=== PATIENT | male | born 1970 | race Caucasian/White ===

== ENCOUNTER 2020-04-29 09:49 | Inpatient (IN) | payer MEDICAID ==
[~2020-04-29] VITALS: Ht 185.4 cm; Wt 108.1 kg
--- NOTE | 2020-04-29 10:35 | NUR ---
PT BROUGHT FROM RAP TO BED 5
[2020-04-29 11:14] LABS: BASOPHILS % (AUTO) 0.3 % (0-1); EOSINOPHILS # (AUTO) 0.1 X10'3 (0-0.9); EOSINOPHILS % (AUTO) 1.3 % (0-6); HEMATOCRIT 41.2 % (42.0-52.0); HEMOGLOBIN 13.4 g/dl (14.0-17.9); LYMPHOCYTES # (AUTO) 1.6 X10'3 (1.1-4.8); LYMPHOCYTES % (AUTO) 13.8 % (21-51); MEAN CORPUSCULAR HEMOGLOBIN 24.5 PG (27.0-31.0); MEAN CORPUSCULAR HGB CONC 32.6 g/dL (33.0-36.5); MEAN CORPUSCULAR VOLUME 75.3 FL (78-98); MEAN PLATELET VOLUME 7.3 FL (7.4-10.4); MONOCYTES # (AUTO) 1.3 X10'3 (0-0.9); MONOCYTES % (AUTO) 11.1 % (2-12); NEUTROPHILS # (AUTO) 8.3 X10'3 (1.8-7.7); NEUTROPHILS % (AUTO) 73.5 % (42-75); PLATELET COUNT 178 X10'3 (140-440); RED BLOOD COUNT 5.47 X10'6 (4.70-6.10); RED CELL DISTRIBUTION WIDTH 20.1 % (11.5-14.5); WHITE BLOOD COUNT 11.3 X10'3 (4.5-11.0)
[2020-04-29 11:29] LABS: ALANINE AMINOTRANSFERASE 31 U/L (12-78); ALBUMIN 2.4 G/DL (3.4-5.0); ALBUMIN/GLOBULIN RATIO 0.5 (1.1-1.5); ALKALINE PHOSPHATASE 120 IU/L (46-116); ANION GAP 14 (8-16); ASPARTATE AMINO TRANSFERASE 41 U/L (10-37); BLOOD UREA NITROGEN 13 MG/DL (7-18); BUN/CREATININE RATIO 12.1 (5.4-32.0); CALCIUM 8.8 MG/DL (8.5-10.1); CHLORIDE 99 MMOL/L (99-107); CREATININE 1.07 MG/DL (0.60-1.10); GLUCOSE 127 MG/DL (70-104); POTASSIUM 4.5 MMOL/L (3.5-5.1); SODIUM 137 MMOL/L (135-145); TOTAL CARBON DIOXIDE 24.4 MMOL/L (24-32); TOTAL PROTEIN 7.5 G/DL (6.4-8.2); eGFR 73 ML/MIN
[2020-04-29] MEDS ORDERED: normal saline 1000ML IV soln IVB ONE (11:30)
[2020-04-29] MEDS ORDERED: LORazepam 2 mg/ml vial IV ONE (12:00)
[2020-04-29 12:25] LABS: ABG BASE EXCESS -0.1 mmol/L (-2.0-2.0); ABG OXYGEN SATURATION 95.9 % (94-97); ABG PCO2 (T) 25.7 mmHg (35.0-48.0); ABG PO2 (T) 77.6 mmHg (75.0-100.0); ALLEN'S TEST POSITIVE; FCOHb 0.6 % (0.0-3.9); FMetHb 0.2 % (0.0-1.5); FO2Hb 95.1 % (94-97); TOTAL HEMOGLOBIN 13.8 G/dl (14.0-18.0)
[2020-04-29 12:37] LABS: D-DIMER 5.19 MG/L FEU (0-0.50)
[2020-04-29 12:44] LABS: ANISOCYTOSIS 3+; MICROCYTOSIS 1+; PLATELET ESTIMATE NORMAL
[2020-04-29 12:45] LABS: ELLIPTOCYTES FEW
[2020-04-29] MEDS ORDERED: iohexol 350MG/ML 100ml bottle IV ONE (13:14)
--- NOTE | 2020-04-29 13:22 | NUR ---
20G IV TO RIGHT WRIST WINSOME WELL, ATIVAN GIVEN, PT TO CT
--- NOTE | 2020-04-29 13:29 | NUR ---
BACK FROM CT
[2020-04-29] MEDS ORDERED: enoxaparin 100mg/ml syringe SUBCUT ONE (14:25)
[2020-04-29] MEDS ORDERED: enoxaparin 80mg/0.8ml syringe SUBCUT ONE (14:30)
[2020-04-29] MEDS ORDERED: enoxaparin 40mg/0.4ml syringe SUBCUT ONE (14:35)
[2020-04-29] MEDS ORDERED: NO HOME MEDS (14:47)
--- NOTE | 2020-04-29 15:00 | NUR ---
Noticed BP trending downward, MAP still above 65, at 74. AZUL York made aware.
[2020-04-29] MEDS ORDERED: alteplase 100MG inj. 100 ML IV ONE (16:15)
[2020-04-29] MEDS ORDERED: thiamine 100mg/ml 2ml inj. IV ONE ×4 (16:35)
[2020-04-29] MEDS ORDERED: potassium Cl 20 mEq SR tablet PO PRN ×8 (16:35)
[2020-04-29] MEDS ORDERED: dextrose 50%-water 50ml dispensing syringe IV PRN ×4 (16:35)
[2020-04-29] MEDS ORDERED: magnesium 2GM in 50ml NS 50 ML IV PRN ×4 (16:35)
[2020-04-29] MEDS ORDERED: Neutra Phos packet PO PRN ×4 (16:35)
[2020-04-29] MEDS ORDERED: pantoprazole 40mg Tablet.DR PO SCH ×3 (16:35)
[2020-04-29] MEDS ORDERED: magnesium hydroxide 30ml (MOM) UD suspension PO PRN ×4 (16:35)
[2020-04-29] MEDS ORDERED: K, MAG and/or Phos replacement - Verify level? MC SCH ×3 (16:35)
[2020-04-29] MEDS ORDERED: haloperidol 5mg tablet PO PRN ×4 (16:35)
[2020-04-29] MEDS ORDERED: LORazepam 2 mg/ml vial IV PRN ×3 (16:35)
[2020-04-29] MEDS ORDERED: magnesium 4gm in 100ml NS 100 ML IV PRN ×4 (16:35)
[2020-04-29] MEDS ORDERED: magnesium Cl slow-release 64mg tablet PO PRN ×4 (16:35)
[2020-04-29] MEDS: K, MAG and/or Phos replacement - Verify level? MC SCH (16:35)
[2020-04-29] MEDS ORDERED: haloperidol lactate 5mg/ml inj IM PRN ×4 (16:35)
[2020-04-29] MEDS ORDERED: sodium phosphate inj. 15 MMOL in dextrose 5%-water 250 ML IV PRN ×8 (16:35)
[2020-04-29] MEDS ORDERED: sodium phosphate inj. 30 MMOL in dextrose 5%-water 250 ML IV PRN ×8 (16:35)
[2020-04-29 17:20] LABS: AMYLASE 16 U/L (25-115); LIPASE < 50 U/L (73-393); MAGNESIUM 1.7 MG/DL (1.5-2.4); PHOSPHORUS 3.8 MG/DL (2.3-4.5)
[2020-04-29] MEDS ORDERED: thiamine inj. 100 MG in normal saline 100ml IV soln 99 ML IV ONE (17:20)
[2020-04-29] MEDS ORDERED: octreotide inj. 1,250 MCG in normal saline 250ml IV soln 243.75 ML IV SCH (17:45)
[2020-04-29] MEDS: pantoprazole 40mg Tablet.DR PO SCH ×2 (17:47→19:23)
--- NOTE | 2020-04-29 19:15 | NUR ---
Patient in room ICU 2037. I have received report from Sarah BLAKELY (ER) and had the opportunity to ask questions and assume patient care. Patient is Alert and oriented. He is tachycardic and tachypneic. He is feeling SOB and has a cough. BP is good and he is not in any pain. Will start TPA at 0230 (12 hrs after lovenox inj.) and continue to monitor closely.
[2020-04-29] MEDS: LORazepam 2 mg/ml vial IV PRN (19:23)
[2020-04-29 19:30] VITALS: BP 113/71
[2020-04-29 20:00] VITALS: BP 94/62
[2020-04-29 21:00] VITALS: BP 104/69
[2020-04-29 22:00] VITALS: BP 104/71
[2020-04-29 23:00] VITALS: BP 91/64
[2020-04-30] VITALS (37 sets, daily range): BP systolic 88–125; BP diastolic 54–82
[2020-04-30] MEDS ORDERED: alteplase 100MG inj. 100 ML IV ONE (02:30)
[2020-04-30] MEDS ORDERED: heparin 25,000 UNIT/250ml bag 250 ML IV ONE (04:00)
[2020-04-30] MEDS ORDERED: heparin 10,000 units/1 ML INJ IV PRN (04:30)
[2020-04-30] MEDS ORDERED: heparin 10,000 units/1 ML INJ IV ONE (04:30)
--- NOTE | 2020-04-30 04:30 | NUR ---
Did not give heparin bolus before starting heparin infusion due to patient bleeding out of his nose for 1/2 hour. He just received TPA infusion and I did not have current coags or hemogram.
[2020-04-30] MEDS: heparin 25,000 UNIT/250ml bag 250 ML IV SCH ×2 (05:00→16:31)
[2020-04-30 06:30] LABS: HEMATOCRIT 34.7 % (42.0-52.0); HEMOGLOBIN 11.3 g/dl (14.0-17.9); MEAN CORPUSCULAR HEMOGLOBIN 24.8 PG (27.0-31.0); MEAN CORPUSCULAR HGB CONC 32.5 g/dL (33.0-36.5); MEAN CORPUSCULAR VOLUME 76.2 FL (78-98); MEAN PLATELET VOLUME 7.7 FL (7.4-10.4); PLATELET COUNT 150 X10'3 (140-440); RED BLOOD COUNT 4.55 X10'6 (4.70-6.10); RED CELL DISTRIBUTION WIDTH 19.6 % (11.5-14.5); WHITE BLOOD COUNT 7.9 X10'3 (4.5-11.0)
--- NOTE | 2020-04-30 06:30 | NUR ---
Patient in room ICU 2037. I have received report from kalyan and had the opportunity to ask questions and assume patient care.
[2020-04-30 06:34] LABS: PARTIAL THROMBOPLASTIN TIME 35 SECONDS (22-32)
[2020-04-30 06:40] LABS: ALANINE AMINOTRANSFERASE 24 U/L (12-78); ALBUMIN 2.1 G/DL (3.4-5.0); ALBUMIN/GLOBULIN RATIO 0.5 (1.1-1.5); ALKALINE PHOSPHATASE 93 IU/L (46-116); ANION GAP 9 (8-16); ASPARTATE AMINO TRANSFERASE 29 U/L (10-37); BLOOD UREA NITROGEN 13 MG/DL (7-18); BUN/CREATININE RATIO 13.7 (5.4-32.0); CALCIUM 8.1 MG/DL (8.5-10.1); CHLORIDE 102 MMOL/L (99-107); CREATININE 0.95 MG/DL (0.60-1.10); GLUCOSE 96 MG/DL (70-104); POTASSIUM 3.7 MMOL/L (3.5-5.1); SODIUM 136 MMOL/L (135-145); TOTAL CARBON DIOXIDE 25.4 MMOL/L (24-32); TOTAL PROTEIN 6.2 G/DL (6.4-8.2); eGFR 84 ML/MIN
[2020-04-30 06:43] LABS: MAGNESIUM 1.7 MG/DL (1.5-2.4); PHOSPHORUS 3.8 MG/DL (2.3-4.5)
[2020-04-30] MEDS: K, MAG and/or Phos replacement - Verify level? MC SCH (08:00)
[2020-04-30] MEDS: pantoprazole 40mg Tablet.DR PO SCH ×2 (08:28→19:34)
--- NOTE | 2020-04-30 10:30 | NUR ---
update to dr reyna. labs ordered for send out, hgb down- aware, ptt wnl. pt awake alert, cooperative. taking diet well
[2020-04-30 11:27] LABS: HEMATOCRIT 31.4 % (42.0-52.0); HEMOGLOBIN 10.4 g/dl (14.0-17.9); MEAN CORPUSCULAR HEMOGLOBIN 24.8 PG (27.0-31.0); MEAN CORPUSCULAR HGB CONC 33.1 g/dL (33.0-36.5); MEAN CORPUSCULAR VOLUME 74.8 FL (78-98); MEAN PLATELET VOLUME 7.6 FL (7.4-10.4); PLATELET COUNT 155 X10'3 (140-440); RED BLOOD COUNT 4.19 X10'6 (4.70-6.10); RED CELL DISTRIBUTION WIDTH 19.8 % (11.5-14.5); WHITE BLOOD COUNT 6.6 X10'3 (4.5-11.0)
[2020-04-30] MEDS: thiamine 100mg tablet PO SCH (13:02)
[2020-04-30] MEDS: multivitamins, therapeutics tablet PO SCH (13:02)
[2020-04-30] MEDS: folic acid 1mg tablet PO SCH (13:03)
--- NOTE | 2020-04-30 14:26 | NUR ---
Malnutrition consult. Pt appears well nourished with no visible fat or muscle wasting. No edema. Normal muscle strength. Eating well, 75-100% PO intake. Does not meet criteria for malnutrition. Addendum: 04/30/20 at [address] Amended: Links added.
--- NOTE | 2020-04-30 14:43 | NUR ---
pt states his breathing is the same with difficulty taking deep breathes. encouraged liquids- voided x 1 dark roger. sats down at times when sleeping, otherwise wnl vss
[2020-04-30 15:26] LABS: HEMATOCRIT 31.7 % (42.0-52.0); HEMOGLOBIN 10.4 g/dl (14.0-17.9); MEAN CORPUSCULAR HEMOGLOBIN 24.4 PG (27.0-31.0); MEAN CORPUSCULAR HGB CONC 32.7 g/dL (33.0-36.5); MEAN CORPUSCULAR VOLUME 74.5 FL (78-98); MEAN PLATELET VOLUME 7.6 FL (7.4-10.4); PLATELET COUNT 158 X10'3 (140-440); RED BLOOD COUNT 4.26 X10'6 (4.70-6.10); RED CELL DISTRIBUTION WIDTH 19.8 % (11.5-14.5); WHITE BLOOD COUNT 6.6 X10'3 (4.5-11.0)
[2020-04-30 15:42] LABS: PARTIAL THROMBOPLASTIN TIME 71 SECONDS (22-32)
[2020-04-30] MEDS: LORazepam 2 mg/ml vial IV PRN (17:34)
--- NOTE | 2020-04-30 17:38 | NUR ---
BREATHING IMPROVED PER PT. SLIGHT SHAKING NOTED- ONLY WHEN ASKED- STATES HE IS ANXIOUS. ATIVAN 2MG IV GIVEN. ENCOURAGED TO ASK WHEN HE NEEDS MEDICATION.
[2020-04-30 20:26] LABS: HEMATOCRIT 29.7 % (42.0-52.0); HEMOGLOBIN 9.7 g/dl (14.0-17.9); MEAN CORPUSCULAR HEMOGLOBIN 24.4 PG (27.0-31.0); MEAN CORPUSCULAR HGB CONC 32.8 g/dL (33.0-36.5); MEAN CORPUSCULAR VOLUME 74.4 FL (78-98); MEAN PLATELET VOLUME 7.5 FL (7.4-10.4); PLATELET COUNT 154 X10'3 (140-440); RED BLOOD COUNT 3.99 X10'6 (4.70-6.10); RED CELL DISTRIBUTION WIDTH 19.7 % (11.5-14.5)
[2020-05-01] VITALS (23 sets, daily range): BP systolic 99–149; BP diastolic 56–93
[2020-05-01] MEDS: heparin 25,000 UNIT/250ml bag 250 ML IV SCH (05:30)
--- NOTE | 2020-05-01 06:30 | NUR ---
Patient in room ICU 2037. I have received report from kalyan and had the opportunity to ask questions and assume patient care.
[2020-05-01 06:40] LABS: BASOPHILS % (AUTO) 0.6 % (0-1); EOSINOPHILS # (AUTO) 0.2 X10'3 (0-0.9); EOSINOPHILS % (AUTO) 3.8 % (0-6); HEMOGLOBIN 10.3 g/dl (14.0-17.9); LYMPHOCYTES # (AUTO) 1.1 X10'3 (1.1-4.8); MEAN CORPUSCULAR HEMOGLOBIN 24.8 PG (27.0-31.0); MEAN CORPUSCULAR HGB CONC 33.2 g/dL (33.0-36.5); MEAN CORPUSCULAR VOLUME 74.7 FL (78-98); MEAN PLATELET VOLUME 7.6 FL (7.4-10.4); MONOCYTES # (AUTO) 0.7 X10'3 (0-0.9); MONOCYTES % (AUTO) 13.3 % (2-12); NEUTROPHILS # (AUTO) 3.1 X10'3 (1.8-7.7); NEUTROPHILS % (AUTO) 60.3 % (42-75); PLATELET COUNT 157 X10'3 (140-440); RED BLOOD COUNT 4.15 X10'6 (4.70-6.10); RED CELL DISTRIBUTION WIDTH 20.5 % (11.5-14.5); WHITE BLOOD COUNT 5.2 X10'3 (4.5-11.0)
[2020-05-01 06:55] LABS: PARTIAL THROMBOPLASTIN TIME 50 SECONDS (22-32)
[2020-05-01 07:00] LABS: ALANINE AMINOTRANSFERASE 26 U/L (12-78); ALBUMIN 1.9 G/DL (3.4-5.0); ALBUMIN/GLOBULIN RATIO 0.5 (1.1-1.5); ALKALINE PHOSPHATASE 78 IU/L (46-116); ANION GAP 6 (8-16); ASPARTATE AMINO TRANSFERASE 37 U/L (10-37); BILIRUBIN,TOTAL 0.5 MG/DL (0.1-1.0); BLOOD UREA NITROGEN 9 MG/DL (7-18); BUN/CREATININE RATIO 11.5 (5.4-32.0); CHLORIDE 102 MMOL/L (99-107); CREATININE 0.78 MG/DL (0.60-1.10); GLUCOSE 104 MG/DL (70-104); MAGNESIUM 1.7 MG/DL (1.5-2.4); PHOSPHORUS 3.3 MG/DL (2.3-4.5); POTASSIUM 3.6 MMOL/L (3.5-5.1); SODIUM 134 MMOL/L (135-145); TOTAL CARBON DIOXIDE 25.9 MMOL/L (24-32); TOTAL PROTEIN 5.9 G/DL (6.4-8.2); eGFR > 90 ML/MIN
[2020-05-01 07:53] LABS: ANISOCYTOSIS 3+; ELLIPTOCYTES 1+; MICROCYTOSIS 1+; PLATELET ESTIMATE NORMAL; POLYCHROMASIA FEW; SCHISTOCYTES FEW
[2020-05-01] MEDS: thiamine 100mg tablet PO SCH (07:54)
[2020-05-01] MEDS: pantoprazole 40mg Tablet.DR PO SCH ×2 (07:54→20:37)
[2020-05-01] MEDS: multivitamins, therapeutics tablet PO SCH (07:54)
[2020-05-01] MEDS: folic acid 1mg tablet PO SCH (07:54)
[2020-05-01] MEDS: K, MAG and/or Phos replacement - Verify level? MC SCH (08:00)
[2020-05-01] MEDS ORDERED: apixaban 2.5mg tablet PO SCH ×2 (08:00)
[2020-05-01] MEDS ORDERED: apixaban 2.5mg tablet PO ONE (09:37)
--- NOTE | 2020-05-01 10:00 | NUR ---
update to dr reyna, orders received. Sandostatin dcd,extra xyiliquis given after change in order. pt uo to bsc for first time- no dizziness noted- tolerated well
[2020-05-01] MEDS ORDERED: LORazepam 2 mg/ml vial IV PRN ×4 (16:35)
[2020-05-01] MEDS ORDERED: LORazepam 1 MG tablet PO PRN ×4 (16:35)
--- NOTE | 2020-05-01 18:38 | NUR ---
pt ambulated around unit and to chair x 1 hour- back to bed on own- "im not feeling good" c/o shaking- ativan 1mg ivp given. reminded of use of call figueroa, pt alert, cooperative all day
[2020-05-01] MEDS: apixaban 5mg tablet PO SCH (20:37)
[2020-05-02] VITALS (19 sets, daily range): BP systolic 93–140; BP diastolic 45–91
[2020-05-02 06:05] LABS: BASOPHILS % (AUTO) 0.4 % (0-1); EOSINOPHILS # (AUTO) 0.2 X10'3 (0-0.9); HEMATOCRIT 30.6 % (42.0-52.0); HEMOGLOBIN 10.2 g/dl (14.0-17.9); LYMPHOCYTES # (AUTO) 1.3 X10'3 (1.1-4.8); LYMPHOCYTES % (AUTO) 24.3 % (21-51); MEAN CORPUSCULAR HEMOGLOBIN 24.9 PG (27.0-31.0); MEAN CORPUSCULAR HGB CONC 33.5 g/dL (33.0-36.5); MEAN CORPUSCULAR VOLUME 74.5 FL (78-98); MEAN PLATELET VOLUME 7.9 FL (7.4-10.4); MONOCYTES # (AUTO) 0.7 X10'3 (0-0.9); MONOCYTES % (AUTO) 14.5 % (2-12); NEUTROPHILS # (AUTO) 2.9 X10'3 (1.8-7.7); NEUTROPHILS % (AUTO) 56.8 % (42-75); PLATELET COUNT 199 X10'3 (140-440); RED BLOOD COUNT 4.11 X10'6 (4.70-6.10); RED CELL DISTRIBUTION WIDTH 21.5 % (11.5-14.5); WHITE BLOOD COUNT 5.2 X10'3 (4.5-11.0)
[2020-05-02 06:11] LABS: PARTIAL THROMBOPLASTIN TIME 31 SECONDS (22-32)
[2020-05-02 06:24] LABS: ALANINE AMINOTRANSFERASE 35 U/L (12-78); ALBUMIN 1.9 G/DL (3.4-5.0); ALBUMIN/GLOBULIN RATIO 0.5 (1.1-1.5); ALKALINE PHOSPHATASE 81 IU/L (46-116); ANION GAP 8 (8-16); ASPARTATE AMINO TRANSFERASE 45 U/L (10-37); BILIRUBIN,TOTAL 0.5 MG/DL (0.1-1.0); BLOOD UREA NITROGEN 9 MG/DL (7-18); BUN/CREATININE RATIO 11.4 (5.4-32.0); CALCIUM 8.1 MG/DL (8.5-10.1); CHLORIDE 104 MMOL/L (99-107); CREATININE 0.79 MG/DL (0.60-1.10); GLUCOSE 91 MG/DL (70-104); MAGNESIUM 1.8 MG/DL (1.5-2.4); PHOSPHORUS 2.9 MG/DL (2.3-4.5); POTASSIUM 3.7 MMOL/L (3.5-5.1); SODIUM 137 MMOL/L (135-145); TOTAL CARBON DIOXIDE 25.5 MMOL/L (24-32); TOTAL PROTEIN 5.9 G/DL (6.4-8.2); eGFR > 90 ML/MIN
--- NOTE | 2020-05-02 06:25 | NUR ---
Problems reprioritized. Patient report given, questions answered & plan of care reviewed with Vishal BLAKELY.
[2020-05-02] MEDS: thiamine 100mg tablet PO SCH (08:33)
[2020-05-02] MEDS: folic acid 1mg tablet PO SCH (08:33)
[2020-05-02] MEDS: apixaban 5mg tablet PO SCH ×2 (08:33→20:27)
[2020-05-02] MEDS: pantoprazole 40mg Tablet.DR PO SCH ×2 (08:33→20:26)
[2020-05-02] MEDS: multivitamins, therapeutics tablet PO SCH (08:33)
[2020-05-02] MEDS: K, MAG and/or Phos replacement - Verify level? MC SCH (08:56)
[2020-05-02] MEDS: guaiFENesin/DM 10ml UD oral syrup PO PRN ×2 (11:50→20:27)
[2020-05-02] MEDS ORDERED: benzonatate 100mg capsule PO PRN (14:30)
[2020-05-02] MEDS: benzonatate 100mg capsule PO SCH ×2 (15:39→23:37)
--- NOTE | 2020-05-02 17:19 | NUR ---
Report given to REDDY Lawrence on tele floor.
--- NOTE | 2020-05-02 17:47 | NUR ---
Patient oriented to room. Vitals signs temp 98.1, BP 106/76, HR 98, Spo2 95%
--- NOTE | 2020-05-02 18:16 | NUR ---
Problems reprioritized. Patient report given, questions answered & plan of care reviewed with Umberto RN.
--- NOTE | 2020-05-02 19:03 | NUR ---
Patient in room PCU 3016. I have received report from Duel and had the opportunity to ask questions and assume patient care.
--- NOTE | 2020-05-02 22:59 | NUR ---
Assessment done at 1900. Documented at 2252. Addendum: 05/02/20 at 2259 by Umberto Whalen RN Amended: Links added.
--- NOTE | 2020-05-02 23:48 | NUR ---
Patient's IV was leaking and not flushing. Removed IV and patient stated he did not want an IV placed tonight. He stated he was going to be discharged tomorrow.
[2020-05-03 02:00] VITALS: BP 113/65
--- NOTE | 2020-05-03 06:28 | NUR ---
Problems reprioritized. Patient report given, questions answered & plan of care reviewed with
[2020-05-03 06:55] LABS: BASOPHILS % (AUTO) 0.7 % (0-1); EOSINOPHILS # (AUTO) 0.3 X10'3 (0-0.9); EOSINOPHILS % (AUTO) 5.5 % (0-6); HEMATOCRIT 31.2 % (42.0-52.0); HEMOGLOBIN 10.5 g/dl (14.0-17.9); LYMPHOCYTES # (AUTO) 1.4 X10'3 (1.1-4.8); LYMPHOCYTES % (AUTO) 23.8 % (21-51); MEAN CORPUSCULAR HEMOGLOBIN 24.8 PG (27.0-31.0); MEAN CORPUSCULAR HGB CONC 33.6 g/dL (33.0-36.5); MEAN CORPUSCULAR VOLUME 73.8 FL (78-98); MEAN PLATELET VOLUME 7.9 FL (7.4-10.4); MONOCYTES # (AUTO) 0.8 X10'3 (0-0.9); MONOCYTES % (AUTO) 14.9 % (2-12); NEUTROPHILS # (AUTO) 3.1 X10'3 (1.8-7.7); NEUTROPHILS % (AUTO) 55.1 % (42-75); PLATELET COUNT 259 X10'3 (140-440); RED BLOOD COUNT 4.23 X10'6 (4.70-6.10); RED CELL DISTRIBUTION WIDTH 21.4 % (11.5-14.5); WHITE BLOOD COUNT 5.7 X10'3 (4.5-11.0)
[2020-05-03 07:12] LABS: PARTIAL THROMBOPLASTIN TIME 28 SECONDS (22-32)
[2020-05-03 07:14] VITALS: BP 105/60
[2020-05-03 07:25] LABS: ALANINE AMINOTRANSFERASE 44 U/L (12-78); ALBUMIN 1.9 G/DL (3.4-5.0); ALBUMIN/GLOBULIN RATIO 0.5 (1.1-1.5); ALKALINE PHOSPHATASE 77 IU/L (46-116); ANION GAP 8 (8-16); ASPARTATE AMINO TRANSFERASE 43 U/L (10-37); BILIRUBIN,TOTAL 0.5 MG/DL (0.1-1.0); BLOOD UREA NITROGEN 9 MG/DL (7-18); BUN/CREATININE RATIO 12.9 (5.4-32.0); CHLORIDE 102 MMOL/L (99-107); GLUCOSE 87 MG/DL (70-104); MAGNESIUM 1.7 MG/DL (1.5-2.4); PHOSPHORUS 2.9 MG/DL (2.3-4.5); POTASSIUM 3.8 MMOL/L (3.5-5.1); SODIUM 134 MMOL/L (135-145); eGFR > 90 ML/MIN
[2020-05-03] MEDS: K, MAG and/or Phos replacement - Verify level? MC SCH (08:00)
[2020-05-03 10:12] LABS: PLATELET ESTIMATE NORMAL
[2020-05-03 10:13] LABS: ANISOCYTOSIS 3+; MICROCYTOSIS 1+
[2020-05-03 10:14] LABS: ELLIPTOCYTES 1+; LARGE PLATELETS FEW
[2020-05-03 11:00] VITALS: BP 124/82
[2020-05-03] MEDS: apixaban 5mg tablet PO SCH (11:07)
[2020-05-03] MEDS: pantoprazole 40mg Tablet.DR PO SCH (11:07)
[2020-05-03] MEDS: guaiFENesin/DM 10ml UD oral syrup PO PRN (11:07)
[2020-05-03] MEDS: folic acid 1mg tablet PO SCH (11:07)
[2020-05-03] MEDS: benzonatate 100mg capsule PO SCH (11:07)
[2020-05-03] MEDS: multivitamins, therapeutics tablet PO SCH (11:08)
[2020-05-03] MEDS: thiamine 100mg tablet PO SCH (11:08)
--- NOTE | 2020-05-03 11:13 | NUR ---
PAGER ID: [phone] MESSAGE: Davina SAGE [id number] PT. STATES HE IS DISCHARGING TODAY OR SEEING A SPECIALIST AND IS REFUSING AN IV UNTIL HE KNOWS THE PLAN. WILL REQUIRE US GUIDED IV PLACEMENT. IRENE [id number]
[2020-05-03] MEDS ORDERED: BENZ-16 PO (11:30)
[2020-05-03] MEDS ORDERED: APIX5TAB3 PO ×2 (11:30→11:35)
--- NOTE | 2020-05-03 12:49 | NUR ---
PAGER ID: [phone] MESSAGE: Please call me when you can about Rickey Day discharge. room [id number] Christina [phone]
--- NOTE | 2020-05-03 14:03 | NUR ---
Pt. had an elevated 1100 auxiliary temp. Rechecked temp. 99.9 oral temp. Reviewed discharge paperwork with pt. reviewed obtaining a PCP, medical information, risk for DVTs, reasons to return to the hospital, medication and possible ASE, risks of bleeding. Pt. given ample opportunities to ask questions and did so. Medications e-scripted to pharmacy in [place] and pt's ride came to p/u pt. from [place]. No IV to DC. Tele removed and returned. Gave report to resource RN who was to break primary RN. Requested for page to be sent to Venu with temp before discharge.
--- NOTE | 2020-05-03 14:42 | NUR ---
Returned from lunch break. Pt. discharged. Resource states charge said it was ok. Venu made aware of last CXR results and low grade fever. Venu states he will review charts.
[2020-05-03] MEDS ORDERED: AMOX-580 PO (15:02)
[2020-05-03] MEDS ORDERED: LORazepam 2 mg/ml vial IV PRN ×4 (16:35)
[2020-05-03] MEDS ORDERED: LORazepam 1 MG tablet PO PRN ×4 (16:35)
[2020-05-08] MEDS ORDERED: apixaban 5mg tablet PO SCH (08:00)
== END 2020-05-03 14:20 | disposition home or self-care (01) | DRG 134 ==
LOC: ER 09:50 → ED HOLD 16:31 → ICU 2S 19:07 → PCU 3S 05-02 17:58
PROVIDERS: ADMIT Internal Medicine Critical Care Medicine; ATTEND Internal Medicine Critical Care Medicine
DX: I26.99 Other pulmonary embolism without acute cor pulmonale (principal); J18.9 Pneumonia, unspecified organism; I50.22 Chronic systolic (congestive) heart failure; I51.7 Cardiomegaly; F10.20 Alcohol dependence, uncomplicated; Z20.822 Contact with and (suspected) exposure to COVID-19; I82.403 Acute embolism and thrombosis of unspecified deep veins of lower extremity, bilateral
CPT/HCPCS: 36415; 36600; 71045; 71275; 80053; 81479; 82140; 82150; 82803; 83605; 83690; 83735; 83880; 83891; 83894; 83898; 84100; 84443; 84484; 85008; 85018; 85025; 85027; 85300; 85301; 85379; 85610; 85730; 86147; 87040; 87635; 93005; 93306; 93308; 93970; 96374; 99291; C9803; G0378; J1644; J1650; J2060; J2354; J2997; J3411; J7030; J7050; Q9967

== ENCOUNTER 2021-12-05 11:27 | Emergency (ER) | payer MEDICAID ==
[~2021-12-05] VITALS: Ht 185.4 cm; Wt 127.0 kg
[~2021-12-05 11:27] MED LIST: APIX5TAB3 PO; BENZ-16 PO
--- NOTE | 2021-12-05 11:46 | NUR ---
Dr. Caraballo at the bedside to examine pt.
--- NOTE | 2021-12-05 11:58 | NUR ---
Dr Caraballo disimpacted pt.
[2021-12-05 12:00] VITALS: BP 134/86
[2021-12-05] MEDS ORDERED: BISA-155 PO ×2 (12:00)
[2021-12-05] MEDS ORDERED: BISA10SU60 RC ×2 (12:00)
--- NOTE | 2021-12-05 12:55 | NUR ---
Pt given and understands d/c instructions. Given a taxi voucher. Ambulatory with a steady gait.
== END 2021-12-05 12:57 | disposition home or self-care (01) ==
LOC: ER 11:28
DX: K59.00 Constipation, unspecified (principal); G89.29 Other chronic pain; M54.9 Dorsalgia, unspecified; Z79.899 Other long term (current) drug therapy
CPT/HCPCS: 82948; 99283

== ENCOUNTER 2021-12-07 12:44 | Inpatient (IN) | payer MEDICAID ==
[~2021-12-07] VITALS: Ht 185.4 cm; Wt 117.0 kg
[~2021-12-07 12:44] MED LIST changes: +BISA-155 PO; +BISA10SU60 RC
[2021-12-07 13:26] LABS: BASOPHILS # (AUTO) 0.1 X10'3 (0-0.2); BASOPHILS % (AUTO) 0.7 % (0-1); EOSINOPHILS % (AUTO) 0.3 % (0-6); HEMATOCRIT 44.2 % (42.0-52.0); HEMOGLOBIN 15.7 g/dl (14.0-17.9); LYMPHOCYTES # (AUTO) 1.3 X10'3 (1.1-4.8); LYMPHOCYTES % (AUTO) 11.4 % (21-51); MEAN CORPUSCULAR HEMOGLOBIN 32.3 PG (27.0-31.0); MEAN CORPUSCULAR HGB CONC 35.5 g/dL (33.0-36.5); MEAN PLATELET VOLUME 8.5 FL (7.4-10.4); MONOCYTES # (AUTO) 1.1 X10'3 (0-0.9); MONOCYTES % (AUTO) 9.3 % (2-12); NEUTROPHILS % (AUTO) 78.3 % (42-75); PLATELET COUNT 179 X10'3 (140-440); RED BLOOD COUNT 4.86 X10'6 (4.70-6.10); RED CELL DISTRIBUTION WIDTH 17.5 % (11.5-14.5); WHITE BLOOD COUNT 11.5 X10'3 (4.5-11.0)
[2021-12-07 15:36] LABS: ALANINE AMINOTRANSFERASE 51 U/L (12-78); ALBUMIN/GLOBULIN RATIO 1.1 (1.1-1.5); ALKALINE PHOSPHATASE 77 IU/L (46-116); ANION GAP 12 (8-16); ASPARTATE AMINO TRANSFERASE 46 U/L (10-37); BILIRUBIN,TOTAL 1.1 MG/DL (0.1-1.0); BLOOD UREA NITROGEN 9 MG/DL (7-18); BUN/CREATININE RATIO 9.4 (5.4-32.0); CALCIUM 9.1 MG/DL (8.5-10.1); CHLORIDE 95 MMOL/L (99-107); CREATININE 0.96 MG/DL (0.60-1.10); GLUCOSE 102 MG/DL (70-104); POTASSIUM 3.3 MMOL/L (3.5-5.1); SODIUM 136 MMOL/L (135-145); TOTAL CARBON DIOXIDE 28.9 MMOL/L (24-32); TOTAL PROTEIN 7.6 G/DL (6.4-8.2); eGFR 83 ML/MIN
[2021-12-07] MEDS ORDERED: metoclopramide 5 mg/ml inj IV ONE (17:00)
[2021-12-07] MEDS ORDERED: diazepam inj 5 MG/ML inj. IV ONE (17:00)
--- NOTE | 2021-12-07 17:00 | NUR ---
Pt c/o n/v, abd pain, and etoh withdrawl. +Tremors.
[2021-12-07] MEDS ORDERED: LORazepam 2 mg/ml vial IV ONE ×2 (17:25→19:25)
[2021-12-07] MEDS ORDERED: normal saline 1000ml 1,000 ML IV ONE (19:25)
[2021-12-07] MEDS ORDERED: POTASSIUM BICARB 20meq eff tab 20 MEQ TABLET.EFF PO STA (19:51)
[2021-12-07] MEDS ORDERED: thiamine 100mg/ml 2ml inj. IV ONE (21:45)
[2021-12-07] MEDS ORDERED: magnesium 2GM in 50ml NS 50 ML IV PRN (22:15)
[2021-12-07] MEDS ORDERED: magnesium hydroxide 30ml (MOM) UD suspension PO PRN (22:15)
[2021-12-07] MEDS ORDERED: mag hydrox/Alum hydrox/simeth 30ml oral suspension PO PRN (22:15)
[2021-12-07] MEDS ORDERED: magnesium Cl slow-release 64mg tablet PO PRN (22:15)
[2021-12-07] MEDS ORDERED: potassium CL 10mEq/100ml bag 100 ML IV PRN (22:15)
[2021-12-07] MEDS ORDERED: acetaminophen 325mg tablet PO PRN (22:15)
[2021-12-07] MEDS ORDERED: POTASSIUM BICARB 20meq eff tab 20 MEQ TABLET.EFF PO PRN ×2 (22:15)
[2021-12-07] MEDS ORDERED: PERFLUTREN PROTEIN-A MICROSPHR (Optison) 0.22 MG/ML 3ML VIAL IV ONE (22:15)
[2021-12-07] MEDS ORDERED: ondansetron/PF 4mg/2ml inj IV PRN (22:15)
[2021-12-07] MEDS ORDERED: magnesium 4gm in 100ml NS 100 ML IV PRN (22:15)
[2021-12-07] MEDS ORDERED: pantoprazole 40MG/NS 100ML BAG 100 ML IV ONE (22:20)
[2021-12-07 23:02] LABS: POTASSIUM 3.5 MMOL/L (3.5-5.1)
[2021-12-07] MEDS: normal saline 1000ml 1,000 ML IV SCH (23:06)
[2021-12-08] MEDS: K and/or MAG REPLACEMENT MC SCH ×2 (08:00→20:00)
[2021-12-08] MEDS ORDERED: heparin, porcine 5000 units/ml vial SQ SCH (08:00)
[2021-12-08] MEDS: pantoprazole 40MG/NS 100ML BAG 100 ML IV SCH ×2 (08:00→22:39)
[2021-12-08] MEDS: docusate sod 100mg capsule PO SCH ×2 (08:00→20:34)
[2021-12-08] MEDS: normal saline 1000ml 1,000 ML IV SCH ×3 (08:15→20:33)
[2021-12-08 09:07] LABS: BASOPHILS % (AUTO) 0.6 % (0-1); EOSINOPHILS # (AUTO) 0.1 X10'3 (0-0.9); EOSINOPHILS % (AUTO) 1.3 % (0-6); HEMATOCRIT 38.3 % (42.0-52.0); HEMOGLOBIN 13.5 g/dl (14.0-17.9); LYMPHOCYTES % (AUTO) 14.9 % (21-51); MEAN CORPUSCULAR HEMOGLOBIN 32.3 PG (27.0-31.0); MEAN CORPUSCULAR HGB CONC 35.2 g/dL (33.0-36.5); MEAN CORPUSCULAR VOLUME 91.6 FL (78-98); MONOCYTES # (AUTO) 0.6 X10'3 (0-0.9); MONOCYTES % (AUTO) 9.2 % (2-12); NEUTROPHILS # (AUTO) 5.1 X10'3 (1.8-7.7); PLATELET COUNT 116 X10'3 (140-440); RED BLOOD COUNT 4.19 X10'6 (4.70-6.10); RED CELL DISTRIBUTION WIDTH 17.1 % (11.5-14.5); WHITE BLOOD COUNT 6.9 X10'3 (4.5-11.0)
[2021-12-08 09:23] LABS: ALBUMIN 3.1 G/DL (3.4-5.0); ASPARTATE AMINO TRANSFERASE 29 U/L (10-37); MAGNESIUM 1.2 MG/DL (1.5-2.4)
[2021-12-08 09:28] LABS: ALANINE AMINOTRANSFERASE 35 U/L (12-78); ALKALINE PHOSPHATASE 63 IU/L (46-116); ANION GAP 8 (8-16); BILIRUBIN,TOTAL 1.2 MG/DL (0.1-1.0); BLOOD UREA NITROGEN 11 MG/DL (7-18); BUN/CREATININE RATIO 10.7 (5.4-32.0); CALCIUM 7.8 MG/DL (8.5-10.1); CHLORIDE 96 MMOL/L (99-107); CREATININE 1.03 MG/DL (0.60-1.10); GLUCOSE 89 MG/DL (70-104); POTASSIUM 3.2 MMOL/L (3.5-5.1); SODIUM 134 MMOL/L (135-145); TOTAL CARBON DIOXIDE 30.3 MMOL/L (24-32); TOTAL PROTEIN 6.1 G/DL (6.4-8.2); eGFR 76 ML/MIN
[2021-12-08] MEDS: LORazepam 2 mg/ml vial IV PRN ×3 (09:54→20:34)
--- NOTE | 2021-12-08 10:37 | NUR ---
DISCUSSED HEPARIN DOSE WITH DR. CAMARILLO. DUE TO PT HISTORY OF DVT AND PE, IT WAS DECIDED THAT THE DOSE IS APPROPRIATE WITH CONSIDERATION OF THE GI BLEEDING. MD AWARE OF DECLINING HGB.
[2021-12-08] MEDS ORDERED: APIX5TAB3 PO (13:33)
[2021-12-08 20:00] VITALS: BP_SYST 145; BP_SYST 97; BP_DIAS 50; BP_DIAS 83
[2021-12-08] MEDS: apixaban 5mg tablet PO SCH (20:34)
[2021-12-08 22:00] VITALS: BP 119/76
[2021-12-09 06:00] VITALS: BP 110/68
--- NOTE | 2021-12-09 06:06 | NUR ---
Problems reprioritized. Patient report given, questions answered & plan of care reviewed with Sheron BLAKELY. Addendum: 12/09/21 at 0606 by Melinda Echeverria RN Amended: Links added.
--- NOTE | 2021-12-09 06:41 | NUR ---
Patients IV alarming. Assessed patient IV, IV was partially pulled out IV dc'd cannula intact. Will replace IV
--- NOTE | 2021-12-09 07:06 | NUR ---
Patient in room ORTHO 4010. I have received report from Melinda BLAKELY and had the opportunity to ask questions and assume patient care.
[2021-12-09] MEDS: K and/or MAG REPLACEMENT MC SCH ×2 (08:00→20:00)
[2021-12-09 08:02] LABS: BASOPHILS % (AUTO) 0.6 % (0-1); EOSINOPHILS # (AUTO) 0.2 X10'3 (0-0.9); EOSINOPHILS % (AUTO) 5.1 % (0-6); HEMATOCRIT 36.9 % (42.0-52.0); HEMOGLOBIN 13.1 g/dl (14.0-17.9); LYMPHOCYTES # (AUTO) 0.7 X10'3 (1.1-4.8); LYMPHOCYTES % (AUTO) 17.8 % (21-51); MEAN CORPUSCULAR HEMOGLOBIN 32.7 PG (27.0-31.0); MEAN CORPUSCULAR HGB CONC 35.5 g/dL (33.0-36.5); MEAN CORPUSCULAR VOLUME 92.2 FL (78-98); MEAN PLATELET VOLUME 8.4 FL (7.4-10.4); MONOCYTES # (AUTO) 0.4 X10'3 (0-0.9); MONOCYTES % (AUTO) 8.4 % (2-12); NEUTROPHILS # (AUTO) 2.8 X10'3 (1.8-7.7); NEUTROPHILS % (AUTO) 68.1 % (42-75); PLATELET COUNT 96 X10'3 (140-440); RED CELL DISTRIBUTION WIDTH 16.9 % (11.5-14.5); WHITE BLOOD COUNT 4.2 X10'3 (4.5-11.0)
[2021-12-09] MEDS: normal saline 1000ml 1,000 ML IV SCH (08:42)
[2021-12-09] MEDS: apixaban 5mg tablet PO SCH ×2 (08:42→20:34)
[2021-12-09] MEDS: pantoprazole 40MG/NS 100ML BAG 100 ML IV SCH ×2 (08:42→20:35)
[2021-12-09] MEDS: docusate sod 100mg capsule PO SCH ×2 (08:42→20:34)
[2021-12-09 08:53] LABS: ALANINE AMINOTRANSFERASE 43 U/L (12-78); ALBUMIN 2.8 G/DL (3.4-5.0); ALBUMIN/GLOBULIN RATIO 0.9 (1.1-1.5); ALKALINE PHOSPHATASE 58 IU/L (46-116); ANION GAP 7 (8-16); ASPARTATE AMINO TRANSFERASE 55 U/L (10-37); BILIRUBIN,TOTAL 0.7 MG/DL (0.1-1.0); BLOOD UREA NITROGEN 9 MG/DL (7-18); BUN/CREATININE RATIO 10.5 (5.4-32.0); CALCIUM 7.3 MG/DL (8.5-10.1); CHLORIDE 102 MMOL/L (99-107); CREATININE 0.86 MG/DL (0.60-1.10); GLUCOSE 76 MG/DL (70-104); MAGNESIUM 2.2 MG/DL (1.5-2.4); POTASSIUM 3.5 MMOL/L (3.5-5.1); SODIUM 136 MMOL/L (135-145); TOTAL CARBON DIOXIDE 27.2 MMOL/L (24-32); TOTAL PROTEIN 5.8 G/DL (6.4-8.2); eGFR > 90 ML/MIN
[2021-12-09] MEDS: LORazepam 2 mg/ml vial IV PRN ×5 (08:56→20:34)
[2021-12-09 10:00] VITALS: BP 119/77
[2021-12-09 18:00] VITALS: BP 122/73
[2021-12-09 22:00] VITALS: BP 110/66
[2021-12-09] MEDS ORDERED: LORazepam 2 mg/ml vial IV PRN (22:20)
[2021-12-10] MEDS: normal saline 1000ml 1,000 ML IV SCH ×3 (00:20→17:52)
[2021-12-10 06:15] LABS: BASOPHILS % (AUTO) 0.9 % (0-1); EOSINOPHILS # (AUTO) 0.4 X10'3 (0-0.9); EOSINOPHILS % (AUTO) 9.5 % (0-6); HEMATOCRIT 37.2 % (42.0-52.0); LYMPHOCYTES # (AUTO) 1.1 X10'3 (1.1-4.8); LYMPHOCYTES % (AUTO) 25.6 % (21-51); MEAN CORPUSCULAR HGB CONC 35.1 g/dL (33.0-36.5); MEAN CORPUSCULAR VOLUME 94.2 FL (78-98); MEAN PLATELET VOLUME 8.1 FL (7.4-10.4); MONOCYTES # (AUTO) 0.5 X10'3 (0-0.9); MONOCYTES % (AUTO) 11.1 % (2-12); NEUTROPHILS # (AUTO) 2.2 X10'3 (1.8-7.7); NEUTROPHILS % (AUTO) 52.9 % (42-75); PLATELET COUNT 100 X10'3 (140-440); RED BLOOD COUNT 3.95 X10'6 (4.70-6.10); RED CELL DISTRIBUTION WIDTH 17.2 % (11.5-14.5); WHITE BLOOD COUNT 4.1 X10'3 (4.5-11.0)
[2021-12-10 06:32] LABS: ALANINE AMINOTRANSFERASE 66 U/L (12-78); ALBUMIN 2.9 G/DL (3.4-5.0); ALKALINE PHOSPHATASE 61 IU/L (46-116); ANION GAP 9 (8-16); ASPARTATE AMINO TRANSFERASE 100 U/L (10-37); BILIRUBIN,TOTAL 0.4 MG/DL (0.1-1.0); BLOOD UREA NITROGEN 7 MG/DL (7-18); BUN/CREATININE RATIO 9.3 (5.4-32.0); CALCIUM 7.3 MG/DL (8.5-10.1); CHLORIDE 107 MMOL/L (99-107); CREATININE 0.75 MG/DL (0.60-1.10); GLUCOSE 90 MG/DL (70-104); MAGNESIUM 2.1 MG/DL (1.5-2.4); POTASSIUM 3.9 MMOL/L (3.5-5.1); SODIUM 139 MMOL/L (135-145); TOTAL CARBON DIOXIDE 23.4 MMOL/L (24-32); TOTAL PROTEIN 5.9 G/DL (6.4-8.2); eGFR > 90 ML/MIN
--- NOTE | 2021-12-10 06:42 | NUR ---
Problems reprioritized. Patient report given, questions answered & plan of care reviewed with RAFAEL BLAKELY.
[2021-12-10] MEDS: apixaban 5mg tablet PO SCH ×2 (07:20→19:18)
[2021-12-10] MEDS: docusate sod 100mg capsule PO SCH ×2 (07:20→19:18)
[2021-12-10] MEDS: pantoprazole 40MG/NS 100ML BAG 100 ML IV SCH ×2 (07:22→19:18)
[2021-12-10] MEDS: LORazepam 1 MG tablet PO PRN ×5 (07:30→22:12)
[2021-12-10] MEDS: K and/or MAG REPLACEMENT MC SCH ×2 (08:00→20:00)
[2021-12-10 09:02] VITALS: BP 105/63
[2021-12-10 10:35] VITALS: BP 108/76
--- NOTE | 2021-12-10 15:56 | NUR ---
Pt in good spirits. Agreeable to current plan of care. Pt was very emotional this morning regarding his lapse in alcohol. Pt [place] just "fell of the wagon". Pt is interested outpatient recovery program. Pts anxiety is well managed with PO ativan. Pt independent with self care. Will continue to monitor patient.
[2021-12-10 18:00] VITALS: BP 120/83
[2021-12-10 22:00] VITALS: BP 120/65
[2021-12-11 06:00] VITALS: BP 126/74
--- NOTE | 2021-12-11 06:34 | NUR ---
Problems reprioritized. Patient report given, questions answered & plan of care reviewed with REDDY Frank.
[2021-12-11 07:18] LABS: BASOPHILS % (AUTO) 0.8 % (0-1); EOSINOPHILS # (AUTO) 0.4 X10'3 (0-0.9); EOSINOPHILS % (AUTO) 8.6 % (0-6); HEMATOCRIT 39.2 % (42.0-52.0); HEMOGLOBIN 13.8 g/dl (14.0-17.9); LYMPHOCYTES # (AUTO) 1.2 X10'3 (1.1-4.8); LYMPHOCYTES % (AUTO) 25.6 % (21-51); MEAN CORPUSCULAR HEMOGLOBIN 32.8 PG (27.0-31.0); MEAN CORPUSCULAR HGB CONC 35.3 g/dL (33.0-36.5); MONOCYTES # (AUTO) 0.7 X10'3 (0-0.9); MONOCYTES % (AUTO) 14.1 % (2-12); NEUTROPHILS # (AUTO) 2.5 X10'3 (1.8-7.7); NEUTROPHILS % (AUTO) 50.9 % (42-75); PLATELET COUNT 110 X10'3 (140-440); RED BLOOD COUNT 4.21 X10'6 (4.70-6.10); RED CELL DISTRIBUTION WIDTH 17.4 % (11.5-14.5); WHITE BLOOD COUNT 4.8 X10'3 (4.5-11.0)
[2021-12-11 07:28] LABS: ALANINE AMINOTRANSFERASE 93 U/L (12-78); ALBUMIN 3.1 G/DL (3.4-5.0); ALKALINE PHOSPHATASE 65 IU/L (46-116); ANION GAP 8 (8-16); ASPARTATE AMINO TRANSFERASE 112 U/L (10-37); BILIRUBIN,TOTAL 0.4 MG/DL (0.1-1.0); BLOOD UREA NITROGEN 8 MG/DL (7-18); BUN/CREATININE RATIO 10.8 (5.4-32.0); CALCIUM 7.9 MG/DL (8.5-10.1); CHLORIDE 108 MMOL/L (99-107); CREATININE 0.74 MG/DL (0.60-1.10); GLUCOSE 92 MG/DL (70-104); MAGNESIUM 2.1 MG/DL (1.5-2.4); POTASSIUM 4.1 MMOL/L (3.5-5.1); SODIUM 137 MMOL/L (135-145); TOTAL CARBON DIOXIDE 21.3 MMOL/L (24-32); TOTAL PROTEIN 6.3 G/DL (6.4-8.2); eGFR > 90 ML/MIN
[2021-12-11] MEDS: docusate sod 100mg capsule PO SCH (07:38)
[2021-12-11] MEDS: apixaban 5mg tablet PO SCH (07:38)
[2021-12-11] MEDS: K and/or MAG REPLACEMENT MC SCH (07:42)
[2021-12-11] MEDS ORDERED: pantoprazole 40mg Tablet.DR PO SCH (08:00)
--- NOTE | 2021-12-11 08:21 | NUR ---
Initial: Pt admitted w/ alcohol abuse w/ reagan DTs per EMR. Currently on Regular diet w/ 100% intake of meals, though did have 0% of dinner last night. Overall meeting est needs at this time. LBM 12/10 receiving routine colace. No nutrition intervention implemented at this time. Will continue to monitor. Recs: 1. Continue Regular diet as tolerated 2. Bowel care per rx 3. Scaled wts Addendum: 12/11/21 at [address] Amended: Links added.
[2021-12-11 10:00] VITALS: BP 136/95
[2021-12-11] MEDS ORDERED: PANT40TA54 PO (12:24)
--- NOTE | 2021-12-11 13:56 | NUR ---
Pt discharged in stable condition via yellow cab to home. Belongings sent with patient. Educated on discharge instructions/follow up. All questions/concerns reviewed/answered.
[2021-12-12] MEDS ORDERED: thiamine 100mg tablet PO SCH (08:00)
== END 2021-12-11 13:05 | disposition home or self-care (01) | DRG 775 ==
LOC: ER 12:45 → ED HOLD 22:16 → ORTHO 4S 12-08 19:50
PROVIDERS: ADMIT Internal Medicine; ATTEND Family Medicine
DX: F10.231 Alcohol dependence with withdrawal delirium (principal); G61.0 Guillain-Barre syndrome; E83.42 Hypomagnesemia; E87.6 Hypokalemia; G89.29 Other chronic pain; M54.9 Dorsalgia, unspecified; K59.00 Constipation, unspecified; K92.1 Melena; Z79.01 Long term (current) use of anticoagulants; Z86.711 Personal history of pulmonary embolism; Z87.11 Personal history of peptic ulcer disease; Z91.19 Patient's noncompliance with other medical treatment and regimen; Z86.718 Personal history of other venous thrombosis and embolism; Z79.899 Other long term (current) drug therapy
CPT/HCPCS: 36415; 80053; 83735; 84132; 85025; 87081; 93306; 96374; 96375; 96376; 99285; A4565; A6258; C9113; G0378; J2060; J2765; J3360; J3411; J3475; J7030; J7040; L1930